=== PATIENT | male | born 1990 | race Caucasian/White ===

== ENCOUNTER 2017-10-28 19:14 | Emergency (ER) | payer OTHER ==
[~2017-10-28] VITALS: Ht 185.4 cm; Wt 0.3 kg
[~2017-10-28 19:14] MED LIST: AZITHROMYC200 MG/5 M PO; DOXYCYCLINE HY100 M3 PO; IBUPROFEN600 MG PO; KEFLEX500 MG PO; MUPIROCIN22 GM TOP; NORCO 5-325 TA1 EACH PO; NYQUIL D COLD295 ML PO; PREDNISONE10 MG PO; PROVENTIL HFA6.7 GM INH
[2017-10-28] MEDS ORDERED: BREO ELLIPTA I1 EACH INH (19:20)
[2017-10-28] MEDS ORDERED: ZOFRAN ODT4 MG PO (19:21)
[2017-10-28] MEDS ORDERED: VENTOLIN HFA18 GM INH (19:28)
== END 2017-10-28 20:23 | disposition home or self-care (01) ==
LOC: ED 19:14
DX: J06.9 Acute upper respiratory infection, unspecified (principal); E66.9 Obesity, unspecified; Z88.2 Allergy status to sulfonamides; Z79.899 Other long term (current) drug therapy
CPT/HCPCS: 71046; 99283

== ENCOUNTER → 2020-01-10 | Emergency (ER) | payer OTHER ==
[~2020-01-10] VITALS: Ht 188 cm; Wt 154.2 kg
[~2020-01-10] MED LIST changes: +AUGMENTIN 875-1 EACH PO; +BREO ELLIPTA I1 EACH INH; +LISINOPRIL-HCT1 EAC1 PO; +LISINOPRIL-HCT1 EACH PO; +MEDROL4 MG PO; +SUDAFED 12 HOU120 MG PO; +VENTOLIN HFA18 GM INH; +ZOFRAN ODT4 MG PO
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
--- OUTSIDE RECORDS SUMMARY | ~2020-01-10 | XMS | Clinical Summary ---
Demographics + + + | Address | [address] | | | [place] [address] | + + + | Home Phone | | + + + | Preferred Language | Unknown | + + + | Marital Status | Single | + + + | Hinduism Affiliation | Unknown | + + + | Race | Unknown | + + + | Ethnic Group | Unknown | + + + Author + + + | Author | [facility] | | | and [place] | + + + | Organization | [facility] | | | and [...] Team Providers + +------+ + | Care Postal Superintendent Name | Role | Phone | + +------+ + | Terrell Shannon MD | PCP | | + +------+ + Allergies + + + + + + | Active Allergy | Reactions | Severity | Noted | Comments | | | | | Date | | + + + + + + | Sulfa Antibiotics | | | 03/12/20 | | | | | | 15 | | + + + + + + Medications No known medications Active Problems + + + | Problem | Noted Date | + + + | Allergic rhinitis, cause unspecified | 03/12/2015 | + + + + + | Overview: ICD-10 Record update | + + + + + | Tension headache | 03/12/2015 | + + + | Unspecified asthma(493.90) | 03/12/2015 | + + + + + | Overview: ICD-10 Record update | + + Family History + + +------+ + | Medical History | Relation | Name | Comments | + + +------+ + | Diabetes | Father | | | + + +------+ + + +------+--------+ + | Relation | Name | Status | Comments | + +------+--------+ + | Father | | | | + +------+--------+ + Social History + +-------+ +--------+------+ | [...] recent travel history available. | + + Last Filed Vital Signs + + + [...] | | + + + + + Plan of Treatment + + + + + | Health Maintenance | Due Date | Last Done | Comments | + + + + + | Vaccine: | | | | | Dtap/Tdap/Td (1 - | 2 | | | | Tdap) | | | | + + + + + | Vaccine: Influenza | | | | | (Season Ended) | 0 | | | + + + + + Results Not on filefrom Last 3 Months Insurance + +--------+ +--------+ +---------+--------+ | Payer | Benefi | Subscriber | Effect | Phone | Address | Type | | | t Plan | ID | chaim | | | | | | / | | Dates | | | | | | Group | | | | | | + +--------+ +--------+ +---------+--------+ | [employer] | SAIF | [id number] | | [phone] | | Indemn | | | WC | | 015-Pr | 5 | | ity | | | | | esent | | | | + +--------+ +--------+ +---------+--------+ + +--------+ +--------+ + + | Guarantor Name | Accoun | Relation to | Date | Phone | Billing Address | | | t Type | Patient | of | | | | | | | | | | + +--------+ +--------+ + + | Migel Fontenot | Worker | Self [birth year] | [address] | | Blas | angel Comp | | 1990 | [phone] | [place], | | | | | | 0 (Home) | [place] [address] | + +--------+ +--------+ + + | Migel Fontenot | Person | Self [birth year] | [address] | | Blas | al/Fam | | 1990 | [phone] | [place], | | | tiffany | | | 0 (Home) | [place] [address] | + +--------+ +--------+ + + Advance Directives + + + + + | Type | Date Recorded | Patient | Explanation | | | | Agricultural Services Director | | + + + + + | Power of | | | | | Geoint Analyst | | | | + + + + + | Advance | | | | | Directive | | | | + + + + +"
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
--- OUTSIDE RECORDS SUMMARY | ~2020-01-10 | XMS | Clinical Summary ---
Demographics + + + | Address | [address] | | | [place] [address] | + + + | Home Phone | | + + + | Preferred Language | Unknown | + + + | Marital Status | Single | + + + | Methodist Affiliation | Unknown | + + + | Race | Unknown | + + + | Ethnic Group | Unknown | + + + Author + + + | Author | [facility] | | | and [place] | + + + | Organization | [facility] | | | [...] Team Providers + +------+ + | Care Tint Layer Name | Role | Phone | + [...] | | + +--------+ +--------+ +---------+--------+ | [employer] | SAIF | [phone] | | [phone] | | Indemn | | | WC [...] | | | 0 (Home) | [place] [address] | + +--------+ +--------+ + + | Migel Fontenot | Person | Self [birth year] | [address] | | Blas | al/Fam | | 1990 | [phone] | [place], | | | tiffany | | | 0 (Home) | [place] [address] | + +--------+ +--------+ + + Advance Directives + + + + + | Type | Date Recorded | Patient | Explanation | | | | Dry Press Operator | | + + + + + | Power of | | | | | Snow Ranger | | | | + + + + + | Advance | | | | | Directive | | | | + + + + +"
== END ==
LOC: ED 20:55
DX: M25.511 Pain in right shoulder (principal); Z88.2 Allergy status to sulfonamides; Z79.899 Other long term (current) drug therapy
CPT/HCPCS: 73030; 99283-25

== ENCOUNTER 2020-02-17 06:31 | Day surgery (SDC) | payer OTHER ==
[~2020-02-17] VITALS: Ht 188 cm; Wt 160.1 kg
[2020-02-17] MEDS ORDERED: ALPRAZOLAM0.5 MG PO (06:46)
[2020-02-17] MEDS ORDERED: ONDANSETRON ODT4 MG PO (06:55)
[2020-02-17] MEDS ORDERED: ADVIL200 MG PO (06:55)
[2020-02-17] MEDS ORDERED: ZYRTEC10 MG PO (06:56)
--- NOTE | 2020-02-17 08:06 | NUR ---
02/17/20 0806 Julieth Marie 0800 PATIENT ARRIVES TO PACU AWAKE BUT VERY DROWSY. RESP EVEN AND UNLABORED, NC AT 3 LITERS, TURNED OFF AFTER ARRIVING TO PACU. PATIENT ANSWERS QUESTIONS WITH VERY SLURRED SPEECH, BUT ANSWERS ARE APPROPRIATE. PATIENT SLEEPING WHEN NOT STIMULATED.
--- NOTE | 2020-02-17 08:18 | NUR ---
PT IS ALERT, ORIENTED AND STATED HE IS RELAXED. PT MENTIONED THAT WHATEVER I WAS GIVEN HAS WORKED! PT HOPES EGD REVEALS THE SOURCE OF HIS DISCOMFORT. ANY OF PTS' QUESTIONS ASKED AND ANSWERED. PT REQUESTED PRAYER 2
--- NOTE | 2020-02-18 06:11 | OR ---
[facility] [address] [place], [place] [address] Signed DATE OF OPERATION: 02/17/2020 SURGEON: Myke Alcala MD PREOPERATIVE DIAGNOSES: 1. Nausea and vomiting. 2. History of asthma. 3. Dry cough. 4. Possible gastroesophageal reflux disease. 5. Heartburn. 6. Diarrhea. POSTOPERATIVE DIAGNOSES: 1. Mild diffuse gastritis. 2. Small hiatal hernia. PROCEDURE: EGD with CLOtest and biopsies of the duodenal, pyloric bulb, antrum, fundus, GE junction, distal esophagus and mid esophagus. ESTIMATED BLOOD LOSS: None. INDICATIONS: Migel is a 29-year-old gentleman with a body mass index of 45. A couple years ago in [place], [place] he had his gallbladder removed. Overall, he thinks that is better. More recently, he has had quite a bit of nausea and vomiting. He said it is particularly after he eats. He is known to have a history of asthma and dry cough. 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 He talks about diarrhea and possible acid reflux. However, he took omeprazole for a while and did not feel it was helping, so he simply stopped taking it. He also had respiratory syncytial virus about a year ago. In the end, he was not improving. He had an ultrasound of the abdomen performed and he has fatty liver, but no other concerns. He then had a barium swallow done and he swallowed fine. He may have just a small Schatzki's ring. He seemed to have acid reflux during the test, but no obvious hiatal hernia. Consequently, he was asked to see me for an upper endoscopy. I met with Migel in the office and I gave him a pamphlet on upper endoscopy. We had reviewed the nature of the test along with the risks including, but not limited to gas bloating, crampy abdominal pain, bleeding, perforation requiring surgery, and missed diagnosis. We also discussed the need for IV conscious sedation. He had expressed understanding and wished to proceed. Electronically Signed By: MYKE ALCALA MD 02/18/20 0611 PATIENT NAME: MIGEL FINNEY OPERATIVE REPORT DATE OF : [birth year] REPORT #: [id number] PHYSICIAN: MYKE ALCALA MD PCP: LEONARDA THOMASON PAC REPORT IS CONFIDENTIAL AND NOT TO BE RELEASED WITHOUT AUTHORIZATION [facility] [address] [place] [id number] Signed DESCRIPTION OF PROCEDURE: Migel was taken into our endoscopy suite and placed in the supine semi-recumbent position. The posterior oropharynx was anesthetized with Hurricaine spray. A bite block was utilized for the case. He was given a total of 6 mg Versed and 100 mcg of fentanyl to cover the case. Even then he was talking a bit, moving around during the procedure. He woke up immediately after the procedure and was quite lucent and conversant. Nevertheless, he seemed to do well during the procedure. The adult gastroscope had been introduced and advanced under direct visualization of camera. No specific concerns in the posterior oropharynx. The scope was advanced down the esophagus and out in the duodenum under direct visualization without difficulty. The duodenum was unremarkable. He had clear green bile in the duodenum. We took a biopsy of the duodenum for pathologic review. There was very minimal irritation of pyloric bulb, so we took a biopsy from the pyloric bulb as well. The stomach showed some very mild superficial erythema throughout. Consequently, we took a biopsy from the antrum and fundus for pathologic review. We took an additional biopsy out of the antrum for CLOtest. Upon retroflexion of scope, he seems to have just a small hiatal hernia. No gastric or esophageal varices. The scope was withdrawn up through the area of the GE junction, which was compliant without stricture. Very minimal disruption to his Z-line. No obvious Schatzki's ring. No obvious stricture stenosis. No history of dysphagia. Really, no obvious irritation in the distal mid or proximal esophagus. However, he may have had some tiger striping in his mid esophagus. Consequently, we took a biopsy of the distal mid esophagus for pathologic review to rule out eosinophilic esophagitis. After this, the gas was suctioned out and the gastroscope removed. Migel tolerated the procedure quite well. RECOMMENDATIONS: I will see Migel back in my office in 7 to 14 days to review his results. Myke Alcala MD ALB/MODL /[id number] cc: [employer] Electronically Signed By: MYKE ALCALA MD 02/18/20 0611 PATIENT NAME: MIGEL FINNEY OPERATIVE REPORT DATE OF : [birth year] REPORT #: [id number] PHYSICIAN: MYKE ALCALA MD PCP: LEONARDA THOMASON [facility] REPORT IS CONFIDENTIAL AND NOT TO BE RELEASED WITHOUT AUTHORIZATION [facility] [address] [place], [place] [address] Signed Myke Alcala MD Copies: MYKE ALCALA MD ~ Electronically Signed By: MYKE ALCALA MD 02/18/20 0611 PATIENT NAME: MIGEL FINNEY DANIELITO OPERATIVE REPORT DATE OF : [birth year] REPORT #: [id number] PHYSICIAN: MYKE ALCALA MD PCP: LEONARDA THOMASON PAC REPORT IS CONFIDENTIAL AND NOT TO BE RELEASED WITHOUT AUTHORIZATION
--- NOTE | 2020-02-20 16:36 | PATH ---
[facility] [address] [place], [place] [address] Signed SPECIMEN(S): A DUODENUM SPECIMEN(S): B PYLORIC BULB SPECIMEN(S): C ANTRUM/PYLORUS SPECIMEN(S): D FUNDUS SPECIMEN(S): E GE JUNCTION SPECIMEN(S): F LOWER ESOPHAGUS SPECIMEN(S): G MIDDLE ESOPHAGUS SPECIMEN SOURCE: A. DUODENUM B. PYLORIC BULB C. ANTRUM/PYLORUS D. FUNDUS E. GE JUNCTION F. LOWER ESOPHAGUS G. MIDDLE ESOPHAGUS CLINICAL HISTORY: Vomiting, reflux. DX: Gastritis, small hiatal hernia. MICROSCOPIC DESCRIPTION: Histologic sections of all submitted blocks are examined by light microscopy. These findings, together with the gross examination, support the pathologic diagnosis. FINAL PATHOLOGIC DIAGNOSIS: A. Duodenum, biopsy: - Duodenal mucosa with increased intraepithelial lymphocytes, villous blunting, and active inflammation. - Negative for Helicobacter organisms. - Negative for dysplasia or malignancy. - See Comment. B. Stomach, pyloric bulb, biopsy: - Duodenal mucosa with borderline increased intraepithelial lymphocytes, villous blunting, and Abram gland hyperplasia. - Negative for Helicobacter organisms on HE stain. - Negative for dysplasia or malignancy. C. Stomach, antrum/pylorus, biopsy: - Antral mucosa with chronic, active gastritis. - Negative for Helicobacter organisms. - Negative for dysplasia or malignancy. - See Comment. PATIENT NAME: ANGEL FINNEY DANIELITO PATHOLOGY DATE OF : [birth year] REPORT #: [id number] PHYSICIAN: JEFFY PATHOLOGY PCP: LEONARDA THOMASON PAC REPORT IS CONFIDENTIAL AND NOT TO BE RELEASED WITHOUT AUTHORIZATION [facility] [address] [place], [place] [address] Signed D. Stomach, fundus, biopsy: - Oxyntic mucosa with mild chronic, inactive gastritis. - Negative for Helicobacter organisms on HE stain. - Negative for dysplasia or malignancy. E. Gastroesophageal junction, biopsy: - Squamocolumnar junctional mucosa with chronic inflammation and reactive changes, consistent with reflux esophagitis. - Negative for intestinal metaplasia, dysplasia, or malignancy. F. Esophagus, lower, biopsy: - Squamous mucosa with mild chronic inflammation and reactive epithelial changes, consistent with reflux esophagitis. - Negative for intestinal metaplasia, dysplasia, or malignancy. G. Esophagus, middle, biopsy: - Squamous mucosa with minimal chronic inflammation. - Negative for intestinal metaplasia, dysplasia, or malignancy. COMMENT: The findings in the duodenal biopsy (A) are compatible with a mild mucosal lesion and are characteristic of gluten sensitive enteropathy in the appropriate clinical setting. The differential diagnosis includes NSAID-associated damage, peptic duodenitis, and bacterial overgrowth. Correlation with serologic studies is indicated. Immunohistochemical stains (with appropriately staining controls) for H. pylori performed on A and C are negative for Helicobacter organisms. As part of [employer] Quality Improvement Program, a portion of this case was reviewed by another member of our pathology staff. NAL:cml:C2NR GROSS DESCRIPTION: Seven specimens are received in seven containers, labeled "ZS." A. The specimen, labeled "ZS," and designated "duodenum biopsy" per the requisition is received in formalin and consists of one fragment pink-mishra tissue (0.2 x 0.2 x 0.2 cm). The specimen is submitted entirely in cassette A1. B. The specimen, labeled "ZS," and designated "pyloric bulb biopsy" per the requisition is received in formalin and consists of one fragment pink-mishra tissue (0.3 x 0.3 x 0.2 cm). The specimen is submitted entirely in cassette B1. C. The specimen, labeled "ZS," and designated on the requisition "antrum/pylorus biopsy," is received in formalin and consists of one fragment of pink-mishra tissue (0.4 x 0.2 x 0.2 cm). The specimen PATIENT NAME: ANGEL FINNEY PATHOLOGY DATE OF : [birth year] REPORT #: [id number] PHYSICIAN: JEFFY CARBAJAL PCP: LEONARDA THOMASON PAC REPORT IS CONFIDENTIAL AND NOT TO BE RELEASED WITHOUT AUTHORIZATION [facility] [address] [place], [place] [address] Signed is submitted entirely in cassette C1. D. The specimen, labeled "ZS," and designated on the requisition "fundus biopsy," is received in formalin and consists of one fragment pink-mishra tissue (0.3 x 0.2 x 0.2 cm). The specimen is submitted entirely in cassette D1. E. The specimen, labeled "ZS," and designated on the requisition "GE junction biopsy," is received in formalin and consists of one fragment pink-mishra to white-mishra tissue (0.5 x 0.2 x 0.1 cm). The specimen is submitted entirely in cassette E1. F. The specimen, labeled "ZS," and designated on the requisition "lower esophagus biopsy," is received in formalin and consists of one fragment of white-mishra tissue (0.3 x 0.2 x 0.1 cm). The specimen is submitted entirely in cassette F1. G. The specimen, labeled "ZS," and designated on the requisition "middle esophagus," is received in formalin and consists of one fragment of white-mishra tissue (0.3 x 0.2 x 0.1 cm). The specimen is submitted entirely in cassette G1. AC (under the direct supervision of a pathologist) The Gross Description was prepared using a voice recognition system. The report was reviewed for accuracy; however, sound-alike word errors, addition and/or deletions may occur. If there is any question about this report, please contact Client Services. ADDITIONAL NOTES: Immunohistochemical and/or in situ hybridization studies were performed on this case with the appropriate positive controls that react as expected. This test was developed and its performance characteristics determined by [employer]. It has not been cleared or approved by the U.S. Food and Drug Administration. The FDA has determined that such clearance or approval is not necessary. This test is used for clinical purposes. It should not be regarded as investigational or for research. [employer] is certified under the Clinical Laboratory Improvement Amendments of 1988 (CLIA) as qualified to perform high complexity clinical laboratory testing. PERFORMING LABORATORY: The technical component was performed by [employer], [address] [place] [address] (Business Solutions Architect: Latasha Franco MD; CLIA# [id number]). Professional interpretation was performed by PATIENT NAME: ANGEL FINNEY PATHOLOGY DATE OF : [birth year] REPORT #: [id number] PHYSICIAN: [employer] PATHOLOGY PCP: LEONARDA THOMASON PAC REPORT IS CONFIDENTIAL AND NOT TO BE RELEASED WITHOUT AUTHORIZATION [facility] [address] [place], [place] [address] Signed [facility], [facility], [address], [facility] [address], [place], [place] [address] (CLIA# [id number]). Diagnostician: Betsy Sorto MD Pathologist Electronically Signed 02/20/2020 Copies: ~ PATIENT NAME: ANGEL FINNEY DANIELITO PATHOLOGY DATE OF : [birth year] REPORT #: [id number] PHYSICIAN: [facility] PCP: LEONARDA THOMASON PAC REPORT IS CONFIDENTIAL AND NOT TO BE RELEASED WITHOUT AUTHORIZATION
== END 2020-02-17 08:40 | disposition home or self-care (01) ==
LOC: OPS 06:31 → DS 06:31 → OPS 06:45 → DS 06:45 → OPS 08:40
PROVIDERS: Colon & Rectal Surgery
PROC: 0DB78ZX Excision of Stomach, Pylorus, Via Natural or Artificial Opening Endoscopic, Diagnostic (ICD-10-PCS; 2020-02-17)
PROC: 0DB68ZX Excision of Stomach, Via Natural or Artificial Opening Endoscopic, Diagnostic (ICD-10-PCS; 2020-02-17)
PROC: 0DB28ZX Excision of Middle Esophagus, Via Natural or Artificial Opening Endoscopic, Diagnostic (ICD-10-PCS; 2020-02-17)
PROC: 0DB38ZX Excision of Lower Esophagus, Via Natural or Artificial Opening Endoscopic, Diagnostic (ICD-10-PCS; 2020-02-17)
PROC: 0DB48ZX Excision of Esophagogastric Junction, Via Natural or Artificial Opening Endoscopic, Diagnostic (ICD-10-PCS; 2020-02-17)
PROC: 0DB98ZX Excision of Duodenum, Via Natural or Artificial Opening Endoscopic, Diagnostic (ICD-10-PCS; principal; 2020-02-17 06:45)
DX: K29.50 Unspecified chronic gastritis without bleeding (principal); K29.80 Duodenitis without bleeding; K20.9 Esophagitis, unspecified; K44.9 Diaphragmatic hernia without obstruction or gangrene; K21.9 Gastro-esophageal reflux disease without esophagitis; Z79.899 Other long term (current) drug therapy; Z88.2 Allergy status to sulfonamides
CPT/HCPCS: 86677; 99153; G0500; J2250; J3010; J7121

== ENCOUNTER 2020-12-26 04:11 | Emergency (ER) | payer OTHER ==
[~2020-12-26] VITALS: Ht 188 cm; Wt 145.2 kg
[~2020-12-26 04:11] MED LIST changes: +ADVIL200 MG PO; +ALPRAZOLAM0.5 MG PO; +ONDANSETRON ODT4 MG PO; +ZYRTEC10 MG PO
[2020-12-26] MEDS ORDERED: ZOFRAN4 MG PO (04:39)
== END 2020-12-26 04:46 | disposition home or self-care (01) ==
LOC: ED 04:11
DX: R11.0 Nausea (principal); E66.9 Obesity, unspecified; Z88.8 Allergy status to other drugs, medicaments and biological substances; Z79.899 Other long term (current) drug therapy
CPT/HCPCS: 99283

== ENCOUNTER 2021-08-04 06:09 | Emergency (ER) | payer OTHER ==
[~2021-08-04] VITALS: Ht 188 cm; Wt 154.0 kg
[~2021-08-04 06:09] MED LIST changes: +ZOFRAN4 MG PO
== END 2021-08-04 08:12 | disposition home or self-care (01) ==
LOC: ED 06:09
DX: J06.9 Acute upper respiratory infection, unspecified (principal); E66.9 Obesity, unspecified; Z91.018 Allergy to other foods; Z88.2 Allergy status to sulfonamides; Z79.899 Other long term (current) drug therapy; Z68.41 Body mass index [BMI] 40.0-44.9, adult; Z20.822 Contact with and (suspected) exposure to COVID-19
CPT/HCPCS: 71045; 99283-25; C9803; U0003

== ENCOUNTER 2021-08-30 07:43 | Day surgery (SDC) | payer OTHER ==
[~2021-08-30] VITALS: Ht 188 cm; Wt 151.8 kg
--- NOTE | ~2021-08-30 | OR ---
[facility] [address] [place], [place] [address] Draft DATE OF OPERATION: 08/30/2021 SURGEON: Man Francis MD PREOPERATIVE DIAGNOSES: Nasal obstruction due to septal deformity and inferior turbinate hypertrophy. 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 PROCEDURE: Septoplasty, cautery and bilateral inferior turbinates. ANESTHESIA: General LMA. RIVETER PORTABLE MACHINE: Avery. PREOPERATIVE HISTORY: Mr. 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 He has been unresponsive to appropriate medications and he is taken to the operating room for the above-mentioned procedures. OPERATIVE PROCEDURE AND FINDINGS: After informed consent, the patient was taken to the operating room, placed in supine position where general LMA anesthesia was induced. The patient and procedure were verified. The patient received preoperative intranasal oxymetazoline and intravenous Ancef. Headlight speculum exam of the nasal cavity showed septal deformity on the left side obstructive inferior turbinates were nicely decongested. Septal deformity was excised after 1% lidocaine with epi injection with Carmen removing deviated septal bone and cartilage and the airway was improved, minimal bleeding. The inferior turbinates were then cauterized with a long handle needle point cautery starting on the left side. Multiple transmucosal passes on the inferior turbinate on the medial and inferior surface extending anteriorly all the way back posteriorly, excellent shrinkage of the turbinate and improvement in the airway was obtained. The same procedure on the right inferior turbinate, hemostasis was verified, packing was placed, trimmed Merocel equal amount each side, coated with Neosporin tied anteriorly over a pad. The pharynx was suctioned clear of blood secretions. The patient was then PATIENT NAME: ANGEL FONTENOT OPERATIVE REPORT DATE OF : [birth year] REPORT #: [id number] PHYSICIAN: MAN FRANCIS MD PCP: LEONARDA THOMASON PAC REPORT IS CONFIDENTIAL AND NOT TO BE RELEASED WITHOUT AUTHORIZATION [facility] [address] [place] [id number] Draft awakened, extubated, transported to the recovery room in good condition. No complications. BLOOD LOSS: Minimal. SPECIMEN: No specimen. DRAINS: No drains. PACKING: One piece of Merocel to each nostril. Man Francis MD GC/MODL /[id number] Copies: ~ PATIENT NAME: ANGEL FONTENOT OPERATIVE REPORT DATE OF : [birth year] REPORT #: [id number] PHYSICIAN: MAN FRANCIS MD PCP: LEONARDA THOMASON PAC REPORT IS CONFIDENTIAL AND NOT TO BE RELEASED WITHOUT AUTHORIZATION
[~2021-08-30 07:43] MED LIST changes: +BENADRYL ALLERG25 MG PO; +FLONASE ALLERG9.9 ML; +PROBIOTIC250 MG PO
[2021-08-30] MEDS ORDERED: MULTI VITAMIN1 EACH PO (08:15)
--- NOTE | 2021-08-30 10:12 | NUR ---
08/30/21 1012 Julieth Marie 1006 PATIENT ARRIVES TO PACU UNRESPONSIVE TO PAIN. REQUIRES RN TO JAW THRUST AND ORAL AIRWAY IN PLACE TO MAINTAIN PATENT AIRWAY.RESP EVEN AND UNLABORED WITH INTERVENTION. MASK AT 15 LITERS. 1011 PATIENT CONTINUES TO BE UNRESPONSIVE TO PAIN. ORAL AIRWAY AND JAW THRUST CONTINUED TO MAINTAIN PATENT AIRWAY. RESP EVEN AND UNLABORED, MASK DECREASED TO 10 LITERS.
--- NOTE | 2021-08-30 12:06 | NUR ---
1100: PATIENT BACK IN DAY SURGERY ROOM FROM PACU. RATES PAIN 5/10. DECLINES PAIN MEDICATION AT THIS TIME. MOUSTACHE DRESSING IN PLACE, WHICH IS CLEAN, DRY AND INTACT. PATIENT DROWSY. AWAKENS EASILY TO VOICE. IV SITE WNL. SCDs ON. VS CHECKED. TOLERATING WATER. PUDDING PLACED ON BEDSIDE TABLE. CALL LIGHT WITHIN REACH.
--- NOTE | 2021-08-30 12:11 | NUR ---
1150: PATIENT TOLERATED PUDDING. HOB RAISED MORE PER PATIENT REQUEST. EXTRA PILLOW PLACED BEHIND PATIENT'S HEAD PER PATIENT REQUEST. VS CHECKED. MOUSTACHE DRESSING CDI. SCDs ON. CALL LIGHT WITHIN REACH.
[2021-08-30] MEDS ORDERED: HYDROCODON-ACE1 EA10 PO (12:30)
[2021-08-30] MEDS ORDERED: CEPHALEXIN500 M1 PO (12:30)
--- NOTE | 2021-08-30 13:40 | NUR ---
1230: MOUSTACHE DRESSING CHANGED. PATIENT EDUCATED ON HOW TO CHANGE MOUSTACHE DRESSING. PATIENT ASSISTED OOB AND TO WALK AROUND ROOM. GAIT STEADY. PATIENT GETTING DRESSED. 1240: VS CHECKED. DISHCARGE INSTRUCTIONS GIVEN TO PATIENT. IV DC'D WNL. TIP INTACT. DRESSING APPLIED. PATIENT DISCHARGED TO HOME WITH FATHER AND VIA WHEELCHAIR.
== END 2021-08-30 12:50 | disposition home or self-care (01) ==
LOC: DS 07:43
PROVIDERS: ATTEND Otolaryngology
PROC: 09BM0ZZ Excision of Nasal Septum, Open Approach (ICD-10-PCS; principal; 2021-08-30 10:00)
PROC: 09BL0ZZ Excision of Nasal Turbinate, Open Approach (ICD-10-PCS; 2021-08-30 10:00)
DX: J34.2 Deviated nasal septum (principal); J34.3 Hypertrophy of nasal turbinates; J34.89 Other specified disorders of nose and nasal sinuses; I10 Essential (primary) hypertension
CPT/HCPCS: J0461; J0690; J1100; J1885; J2250; J2405; J2704; J2765; J3010; J7121

== ENCOUNTER 2022-04-24 06:48 | Emergency (ER) | payer OTHER ==
[~2022-04-24] VITALS: Ht 188 cm; Wt 150.0 kg
[~2022-04-24 06:48] MED LIST changes: +CEPHALEXIN500 M1 PO; +HYDROCODON-ACE1 EA10 PO; +MULTI VITAMIN1 EACH PO
[2022-04-24] MEDS ORDERED: VENTOLIN HFA18 GM INH (09:35)
== END 2022-04-24 10:05 | disposition home or self-care (01) ==
LOC: ED 06:48
DX: R06.02 Shortness of breath (principal); R05.9 Cough, unspecified; Z86.16 Personal history of COVID-19; I10 Essential (primary) hypertension; J45.909 Unspecified asthma, uncomplicated; Z88.2 Allergy status to sulfonamides; Z91.018 Allergy to other foods; Z79.899 Other long term (current) drug therapy
CPT/HCPCS: 36415; 71046; 80048; 85025; 85379; A9270-GY

== ENCOUNTER 2022-05-08 02:50 | Emergency (ER) | payer OTHER ==
[~2022-05-08] VITALS: Ht 188 cm; Wt 153.0 kg
[2022-05-08] MEDS ORDERED: OMEPRAZOLE20 MG PO (02:59)
== END 2022-05-08 03:20 | disposition home or self-care (01) ==
LOC: ED 02:50
DX: R06.02 Shortness of breath (principal); U09.9 Post COVID-19 condition, unspecified; I10 Essential (primary) hypertension; J30.2 Other seasonal allergic rhinitis; Z88.2 Allergy status to sulfonamides; Z91.018 Allergy to other foods; Z79.899 Other long term (current) drug therapy

== ENCOUNTER 2022-05-20 05:14 | Emergency (ER) | payer OTHER ==
[~2022-05-20] VITALS: Ht 188 cm; Wt 152.9 kg
[~2022-05-20 05:14] MED LIST changes: +OMEPRAZOLE20 MG PO; +PREDNISONE20 MG PO
--- OUTSIDE RECORDS SUMMARY | 2022-05-20 05:16 | XMS ---
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 EFrancoise VISIT COUNT (12 MO.) [address] [place] [address] TOTAL 5 NOTE: Visits indicate total known visits. ED/UCC VISIT TRACKING (12 MO.) 05/20/2022 05:14 [facility] [place] TYPE: Emergency COMPLAINT: - SOB 05/15/2022 11:07 [facility] [place] TYPE: Emergency COMPLAINT: - SOB DIAGNOSES: - Bronchitis, not specified as acute or chronic - Obesity, unspecified - Essential (primary) hypertension - Allergy status to other drugs, medicaments and biological substances - Allergy status to sulfonamides - COVID-19 - Shortness of breath - Other fpc (current) drug therapy 05/08/2022 02:50 [facility] [place] TYPE: Emergency COMPLAINT: - SHORTNESS OF BREATH DIAGNOSES: - Post COVID-19 condition, unspecified - Other seasonal allergic rhinitis - Other director craft center (current) drug therapy - Shortness of breath - Allergy to other foods - Essential (primary) hypertension - Allergy status to sulfonamides 04/24/2022 06:48 [facility] [place] TYPE: Emergency COMPLAINT: - SOB DIAGNOSES: - Essential (primary) hypertension - Personal history of COVID-19 - Allergy to other foods - Allergy status to sulfonamides - Cough, unspecified - Shortness of breath - Other fpc (current) drug therapy - Unspecified asthma, uncomplicated 08/04/2021 06:10 [facility] [place] TYPE: Emergency COMPLAINT: - COUGHING BLOOD DIAGNOSES: - Cough, unspecified - Acute upper respiratory infection, unspecified - Obesity, unspecified - Allergy to other foods - Allergy status to sulfonamides - COUGH, UNSPECIFIED - Other fpc (current) drug therapy - Body mass index [BMI] 40.0-44.9, adult - Contact with and (suspected) exposure to COVID-19 INPATIENT VISIT TRACKING (12 MO.) No inpatient visits to display in this time frame [email or web address]
[2022-05-20] MEDS ORDERED: ADVAIR 100-501 EACH INH (06:39)
[2022-05-20] MEDS ORDERED: PREDNISONE20 MG PO (07:21)
--- NOTE | 2022-05-20 16:52 | EKG ---
[facility] [address] [facility] [place] [address] Signed Normal sinus rhythm Normal ECG When compared with ECG of 25-AUG-2021 11:31, No significant change was found Confirmed by DAMIAN PHELPS MD ([id number]) on 05/20/2022 4:52:02 PM Electronically Signed By: DAMIAN PHELPS MD 05/20/221651 PATIENT NAME: JAVED FINNEYARASH ESTEVES Electrocardiogram DATE OF : 89 PHYSICIAN: DAMIAN PHELPS MD REPORT #: [id number] REPORT IS CONFIDENTIAL AND NOT TO BE RELEASED WITHOUT AUTHORIZATION
== END 2022-05-20 07:30 | disposition home or self-care (01) ==
LOC: ED 05:14
DX: R06.02 Shortness of breath (principal); I10 Essential (primary) hypertension; E66.9 Obesity, unspecified; Z88.2 Allergy status to sulfonamides; Z88.8 Allergy status to other drugs, medicaments and biological substances; Z79.899 Other long term (current) drug therapy
CPT/HCPCS: 80053; 82803; 83735; 84484; 85025; 93005; 93010; 99284-25; A9270-GY; J7512

== ENCOUNTER 2022-05-22 07:00 | Emergency (ER) | payer OTHER ==
[~2022-05-22] VITALS: Ht 188 cm; Wt 155.5 kg
--- NOTE | ~2022-05-22 | EKG ---
[facility] [address] [facility] [place], [place] [address] Draft EKG completed, results pending confirmation PATIENT NAME: REGANGEL ESTEVES Electrocardiogram DATE OF : 89 PHYSICIAN: PRELIMINARY REPORT #: [id number] REPORT IS CONFIDENTIAL AND NOT TO BE RELEASED WITHOUT AUTHORIZATION
[~2022-05-22 07:00] MED LIST changes: +ADVAIR 100-501 EACH INH
--- OUTSIDE RECORDS SUMMARY | 2022-05-22 07:02 | XMS ---
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 EFrancoise VISIT COUNT (12 MO.) [address] [place] [address] TOTAL 6 NOTE: Visits indicate total known visits. ED/UCC VISIT TRACKING (12 MO.) 05/22/2022 07:00 [facility] [place] TYPE: Emergency COMPLAINT: - DIFFICULTY BREATHING 05/20/2022 05:14 [facility] [place] TYPE: Emergency COMPLAINT: - SOB 05/15/2022 11:07 [facility] [place] TYPE: Emergency COMPLAINT: - SOB DIAGNOSES: - Allergy status to sulfonamides - COVID-19 - Shortness of breath - Other intermodal dispatcher (current) drug therapy - Bronchitis, not specified as acute or chronic - Obesity, unspecified - Essential (primary) hypertension - Allergy status to other drugs, medicaments and biological substances 05/08/2022 02:50 [facility] [place] TYPE: Emergency COMPLAINT: - SHORTNESS OF BREATH DIAGNOSES: - Shortness of breath - Allergy to other foods - Essential (primary) hypertension - Allergy status to sulfonamides - Post COVID-19 condition, unspecified - Other seasonal allergic rhinitis - Other longterm (current) drug therapy 04/24/2022 06:48 [facility] [place] TYPE: Emergency COMPLAINT: - SOB DIAGNOSES: - Cough, unspecified - Shortness of breath - Other longterm (current) drug therapy - Unspecified asthma, uncomplicated - Essential (primary) hypertension - Personal history of COVID-19 - Allergy to other foods - Allergy status to sulfonamides 08/04/2021 06:10 [facility] [place] TYPE: Emergency COMPLAINT: - COUGHING BLOOD DIAGNOSES: - Allergy status to sulfonamides - COUGH, UNSPECIFIED - Other longterm (current) drug therapy - Body mass index [BMI] 40.0-44.9, adult - Contact with and (suspected) exposure to COVID-19 - Cough, unspecified - Acute upper respiratory infection, unspecified - Obesity, unspecified - Allergy to other foods INPATIENT VISIT TRACKING (12 MO.) No inpatient visits to display in this time frame [id number]
== END 2022-05-22 09:02 | disposition home or self-care (01) ==
LOC: ED 07:00
DX: R06.00 Dyspnea, unspecified (principal); E66.9 Obesity, unspecified; I10 Essential (primary) hypertension; Z88.2 Allergy status to sulfonamides; Z88.8 Allergy status to other drugs, medicaments and biological substances; Z79.52 Long term (current) use of systemic steroids; Z79.899 Other long term (current) drug therapy
CPT/HCPCS: 93005; 93010; 99284-25

== ENCOUNTER 2023-01-18 11:40 | Emergency (ER) | payer OTHER ==
[~2023-01-18] VITALS: Ht 188 cm; Wt 157.0 kg
[~2023-01-18 11:40] MED LIST changes: +FLUOXETINE HCL20 MG PO; +ZITHROMAX250 MG PO
[2023-01-18] MEDS ORDERED: OMEPRAZOLE40 MG PO (11:59)
[2023-01-18] MEDS ORDERED: PROBIOTIC1 EAC1 PO (12:00)
[2023-01-18 12:20] VITALS: BP 159/106
== END 2023-01-18 12:21 | disposition home or self-care (01) ==
LOC: ED 11:40
DX: S76.912A Strain of unspecified muscles, fascia and tendons at thigh level, left thigh, initial encounter (principal); W18.42XA Slipping, tripping and stumbling without falling due to stepping into hole or opening, initial encounter; Y99.0 Civilian activity done for income or pay; E66.9 Obesity, unspecified; I10 Essential (primary) hypertension; Z88.2 Allergy status to sulfonamides; Z88.8 Allergy status to other drugs, medicaments and biological substances; Z79.899 Other long term (current) drug therapy
CPT/HCPCS: 99283